=== PATIENT | female | born 1950 | race Two or more races ===

== ENCOUNTER 2017-12-23 08:23 | Outpatient (CLI) | payer OTHER | END 2017-12-23 08:40 | disposition home or self-care (01) | LOC: RAD 501 08:23 | DX: M54.5 Low back pain (principal) ==

== ENCOUNTER 2018-07-15 11:32 | Outpatient (CLI) | payer OTHER | END 2018-07-15 12:13 | disposition home or self-care (01) | LOC: RAD 501 11:32 | DX: S20.229A Contusion of unspecified back wall of thorax, initial encounter (principal); M54.5 Low back pain ==